=== PATIENT | male | born 1970 ===

== ENCOUNTER 2018-10-10 22:29 | Emergency (ER) | payer SELFPAY ==
[2018-10-10 23:28] VITALS: RESP 18; O2SAT 99
[2018-10-11] MEDS ORDERED: Naproxen 500 MG TAB PO ONE ×2 (00:17→00:24)
--- NOTE | 2018-10-11 00:19 | ED PDOC ---
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 Patient states he was eating a chicken leg and thinks he may have swallowed a piece of bone that got caught in his throat. Patient reports pain with swallowing since then. Denies nausea/vomiting, chest pain, shortness of breath, palpitations. Past Medical History Reviewed: Historical Data, Nursing Documentation, Vital Signs Vital Signs: Last Vital Signs Temp 97.9 F 10/10/18 23:26 Pulse 66 10/10/18 23:26 Resp 18 10/10/18 23:26 BP 138/82 10/10/18 23:26 Pulse Ox 99 10/10/18 23:26 - Medical History PMH: No Chronic Diseases - Surgical History Surgical History: No Surg Hx - Family History Family History: States: No Known Family Hx - Living Arrangements Living Arrangements: With Family - Allergies Allergies/Adverse Reactions: Allergies Allergy/AdvReac Type Severity Reaction Status Date / Time No Known Allergies Allergy Verified 10/10/18 23:26 Review of Systems ROS Statement: Except As Marked, All Systems Reviewed And Found Negative ENT: Positive for: Throat Pain Physical Exam - Reviewed Nursing Documentation Reviewed: Yes Vital Signs Reviewed: Yes - Physical Exam Appears: Positive for: Well, Non-toxic, No Acute Distress Head Exam: Positive for: ATRAUMATIC, NORMAL INSPECTION, NORMOCEPHALIC Skin: Positive for: Normal Color Eye Exam: Positive for: Normal appearance ENT: Positive for: Normal ENT Inspection Cardiovascular/Chest: Positive for: Regular Rate, Rhythm Respiratory: Positive for: Normal Breath Sounds Gastrointestinal/Abdominal: Positive for: Normal Exam Back: Positive for: Normal Inspection Extremity: Positive for: Normal ROM Neurologic/Psych: Positive for: Alert, Oriented (x3) - ECG O2 Sat by Pulse Oximetry: 99 - Progress ED Course And Treament: -Naproxen PO -CT soft tissue neck PROCEDURE: CT SOFT TISSUE NECK WITHOUT CONTRAST REASON FOR EXAM: Chicken bone in throat. TECHNIQUE: The patient was scanned in a multi-detector CT scanner. High resolution transaxial imaging was performed following intravenous administration of contrast material. Sagittal and coronal images were reconstructed. COMPARISON: None. FINDINGS: Benign chronic tonsillar calcifications. Normal bilateral parotid glands. Normal bilateral x ray technologist spaces. Normal bilateral parapharyngeal spaces. Normal bilateral carotid spaces. Normal bilateral sublingual and submandibular glands. Normal visualized nasopharynx. Normal retropharyngeal space. Normal perivertebral space. Normal visualized bilateral faucial tonsils. The visualized tongue, tongue base and oropharynx are normal. The visualized cervical lymph nodes (levels I-) are within normal size limits, and maintain normal morphology. There is no demonstrated solid or cystic mass lesion. There is no abnormal contrast enhancement. Normal epiglottis, bilateral vallecula and hypopharynx. The pre-epiglottic and paraglottic adipose spaces are normal. Normal visualized bilateral piriform sinuses, aryepiglottic folds, vocal cords, and arytenoid-cricoid articulations. Normal subglottic trachea. Normal bilateral lobes of the thyroid gland. Normal visualized pulmonary apices. Normal visualized paranasal sinuses. Normal visualized cervical spine. Mild chronic mucosal inflammatory changes of the paranasal sinuses. Mild effusion in the right middle ear cavity and mastoid air cells. IMPRESSION: No CT evidence of a radiodense foreign body. Benign chronic palatine tonsillar calcifications. Patient educated on findings, discharged instructions to take Tylenol/Ibuprofen PRN pain Advised follow up PMD within 2-3 days Return precautions given Disposition - Clinical Impression Clinical Impression: Foreign body sensation in throat - Patient ED Disposition Is Patient to be Admitted: No Counseled Patient/Family Regarding: Studies Performed, Diagnosis, Need For Followup, Rx Given - Disposition Referrals: [facility] [Outside] Disposition Time: 01:58 Condition: IMPROVED Print Language: SPA
[2018-10-11 02:06] VITALS: BP 132/80; PULSE 68; TEMP 98
--- NOTE | 2018-10-11 07:40 | CT ---
Date of service: 10/11/2018 PROCEDURE: CT NECK WITHOUT CONTRAST HISTORY: r/o FB, sensation chicken bone in throat COMPARISON: None available. TECHNIQUE: CT of the neck without intravenous contrast. Coronal and sagittal reformats generated. Radiation dose: Total exam DLP = 291.99 mGy-cm. This CT exam was performed using one or more of the following dose reduction techniques: Automated exposure control, adjustment of the mA and/or kV according to patient size, and/or use of iterative reconstruction technique. FINDINGS: NASOPHARYNX: Unremarkable. SUPRAHYOID NECK: Unremarkable oropharynx, oral cavity, parapharyngeal space and retropharyngeal space. INFRAHYOID NECK: Unremarkable larynx, hypopharynx, and supraglottic space. Vocal cords intact. MASS: None. GLANDS: Parotid and submandibular glands unremarkable. Normal size thyroid gland, without nodule. LYMPH NODES: Normal. No lymphadenopathy. CERVICAL SPINE: No fracture or focal lesion. OTHER FINDINGS: None. IMPRESSION: Unremarkable non-contrast enhanced CT of the neck.
== END 2018-10-11 02:04 | disposition home or self-care (01) ==
LOC: H.ER 22:29
DX: R09.89 Other specified symptoms and signs involving the circulatory and respiratory systems (principal)